=== PATIENT | female | born 1980 | race Caucasian/White ===

== ENCOUNTER 2018-10-13 15:51 | Emergency (ER) | payer MEDICAID, OTHER, SELFPAY ==
[2018-10-13] MEDS ORDERED: CYCLOBENZAPRINE 10 MG TABLET ONE (16:54)
[2018-10-13] MEDS ORDERED: HYDROcodone/APAP 5/325 TABLET ONE (16:55)
[2018-10-13] MEDS ORDERED: CYCLOBENZAPRINE 10 MG TABLET PO ONE (17:00)
[2018-10-13] MEDS ORDERED: HYDROcodone/APAP 5/325 TABLET PO ONE (17:00)
[2018-10-13] MEDS ORDERED: KETOROLAC 30 MG/1 ML ONE (17:46)
[2018-10-13] MEDS ORDERED: PLEASE ENTER WEIGHT MC SCH (18:00)
[2018-10-13] MEDS ORDERED: KETOROLAC 30 MG/1 ML IM ONE (18:00)
[2018-10-13 19:49] VITALS: BP 133/78
== END 2018-10-13 19:54 | disposition home or self-care (01) ==
LOC: ED 17:46
DX: R07.89 Other chest pain (principal); F12.10 Cannabis abuse, uncomplicated; F17.200 Nicotine dependence, unspecified, uncomplicated; Z90.49 Acquired absence of other specified parts of digestive tract
CPT/HCPCS: 71046; 93005; 96372; 99283; J1885

== ENCOUNTER 2018-12-25 20:22 | Observation (INO) | payer MEDICAID ==
[~2018-12-25] VITALS: Ht 165.1 cm; Wt 44.9 kg
[2018-12-25] MEDS ORDERED: FLEXERIL PO (20:46)
[2018-12-25] MEDS ORDERED: ALBU18HF INH (20:47)
[2018-12-25] MEDS ORDERED: LORazepam 2 MG/ML, 1ML IVPush ONE (21:00)
[2018-12-25] MEDS ORDERED: LORazepam 2 MG/ML, 1ML ONE (21:05)
[2018-12-25 21:16] LABS: BASOPHILS # (AUTO) 0.04 x10^3/uL (0-0.1); BASOPHILS % (AUTO) 0 % (0-1); EOSINOPHILS # (AUTO) 0.38 x10^3/uL (0-0.4); EOSINOPHILS % (AUTO) 4 % (1-7); LYMPHOCYTES # (AUTO) 2.52 x10^3/uL (1-3.4); LYMPHOCYTES % (AUTO) 26 % (22-44); MD NO; MEAN CORPUSCULAR HEMOGLOBIN 30.5 pg (27.0-34.8); MEAN CORPUSCULAR HGB CONC 33.6 g/dL (32.4-35.8); MEAN CORPUSCULAR VOLUME 90.8 fL (80-100); MONOCYTES # (AUTO) 0.65 x10^3/uL (0.2-0.8); MONOCYTES % (AUTO) 7 % (2-9); NEUTROPHILS # (AUTO) 6.06 x10^3/uL (1.8-6.8); NEUTROPHILS % (AUTO) 63 % (42-75); PLATELET COUNT 249 x10^3/uL (130-400); RED BLOOD COUNT 5.27 x10^6/uL (3.82-5.3)
[2018-12-25 21:29] LABS: ALANINE AMINOTRANSFERASE 25 U/L (12-78); ALBUMIN 4.8 g/dL (3.4-5.0); ANION GAP 5 mmol/L (5-15); CALCIUM 10.1 mg/dL (8.5-10.1); CHLORIDE 107 mmol/L (98-107)
[2018-12-25] MEDS ORDERED: MORPHINE SULFATE 4 MG/ML, 1ML IVPush PRN (21:30)
[2018-12-25 21:33] LABS: ALKALINE PHOSPHATASE 60 U/L (45-117); BILIRUBIN,TOTAL 0.4 mg/dL (0.2-1.0); CREATININE 0.89 mg/dL (0.55-1.02); TOTAL PROTEIN 8.1 g/dL (6.4-8.2); TROPONIN I < 0.015 ng/mL (0.000-0.045)
[2018-12-25] MEDS ORDERED: ONDANSETRON 2MG/ML, 2ML ONE (22:02)
[2018-12-25] MEDS ORDERED: MORPHINE SULFATE 4 MG/ML, 1ML ONE (22:02)
[2018-12-25] MEDS ORDERED: SODIUM CHLORIDE FLUSH 10ML SYR IVF ONE (22:30)
[2018-12-25] MEDS ORDERED: ONDANSETRON 2MG/ML, 2ML IVPush ONE (22:30)
[2018-12-25] MEDS ORDERED: SODIUM CHLORIDE 0.9% 1,000ML IVBOLUS ONE ×2 (22:30→23:00)
[2018-12-25] MEDS ORDERED: HYDROmorphone 2 MG/ML, 1ML IVPush PRN (23:00)
[2018-12-25] MEDS ORDERED: HYDROmorphone 1 MG/ML, 1ML ONE (23:10)
[2018-12-25 23:33] VITALS: BP 103/73
[2018-12-25] MEDS ORDERED: IBUP-1222 PO (23:40)
[2018-12-25] MEDS ORDERED: ACET325T51 PO (23:40)
[2018-12-25] MEDS ORDERED: MELO15TA24 PO (23:40)
[2018-12-26 00:42] VITALS: BP 108/76
[2018-12-26] MEDS ORDERED: hydrALAzine 20 MG/ML, 1ML IVPush PRN (02:00)
[2018-12-26] MEDS ORDERED: ONDANSETRON 2MG/ML, 2ML IVPush PRN (02:00)
[2018-12-26] MEDS ORDERED: ACETAMINOPHEN 325 MG TABLET PO PRN (02:00)
[2018-12-26] MEDS: HEPARIN 5,000 UNITS/ML, 1ML SQ SCH ×2 (02:22→09:22)
[2018-12-26] MEDS: IBUPROFEN 600 MG TABLET PO PRN ×2 (02:31→09:22)
[2018-12-26 02:55] LABS: TROPONIN I < 0.015 ng/mL (0.000-0.045)
[2018-12-26] MEDS ORDERED: ASPIRIN 325 MG TABLET PO SCH (06:00)
[2018-12-26 07:17] VITALS: BP 105/73
[2018-12-26 07:26] LABS: MICROSCOPIC NOT IND
[2018-12-26 07:28] LABS: CULTURE INDICATED? NO
[2018-12-26 07:42] LABS: AMPHETAMINE SCREEN, URINE Negative (Negative); BARBITURATE SCREEN, URINE Negative (Negative); BENZODIAZEPINE SCREEN, URINE Negative (Negative); CANNABINOID SCREEN, URINE Positive (Negative); COCAINE SCREEN, URINE Negative (Negative); METHADONE SCREEN, URINE Negative (Negative); OPIATE SCREEN, URINE Positive (Negative)
[2018-12-26] MEDS ORDERED: LIDODERM 5% PATCH TD SCH (08:30)
[2018-12-26] MEDS: CYCLOBENZAPRINE 10 MG TABLET PO PRN ×2 (09:23→14:24)
[2018-12-26 09:45] LABS: TROPONIN I < 0.015 ng/mL (0.000-0.045)
[2018-12-26] MEDS ORDERED: ONDA4TAB7 PO (12:15)
== END 2018-12-26 15:50 | disposition home or self-care (01) ==
LOC: ED 20:48 → INTOOBSV 22:46 → EDIP 22:46 → 4WST 23:26 → DCLOUNGE 12-26 15:41
PROVIDERS: ADMIT Family Medicine; ATTEND Family Medicine
DX: R07.89 Other chest pain (principal); I25.10 Atherosclerotic heart disease of native coronary artery without angina pectoris; J45.909 Unspecified asthma, uncomplicated; Z85.05 Personal history of malignant neoplasm of liver; Z85.118 Personal history of other malignant neoplasm of bronchus and lung; Z85.42 Personal history of malignant neoplasm of other parts of uterus; Z87.891 Personal history of nicotine dependence; Z90.710 Acquired absence of both cervix and uterus
CPT/HCPCS: 36415; 71045; 71250; 78582; 80053; 80307; 81003; 83880; 84484; 85025; 93005; 96372; 96374; 96375; 96376; 99284; A9540; A9558; C9898; G0378; J1170; J1644; J2060; J2405; J7030

== ENCOUNTER 2019-02-05 19:17 | Observation (INO) | payer MEDICAID ==
[~2019-02-05] VITALS: Ht 165.1 cm; Wt 59.2 kg
[~2019-02-05 19:17] MED LIST: ACET325T51 PO; ALBU18HF INH; FLEXERIL PO; IBUP-1222 PO; MELO15TA24 PO; ONDA4TAB7 PO
--- NOTE | 2019-02-05 19:31 | NUR ---
PT UNABLE TO HOLD STILL FOR EKG IN TRIAGE.
--- NOTE | 2019-02-05 19:58 | NUR ---
PT REPORTS SUDDEN ONSET STERNAL/ L RIB PAIN WHILE SITTING ON COUCH, "I COULD FEEL IT POP". 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 PT REPORTS THAT THIS FEELS SIMILAR. L RIB/STERNUM TENDER TO PALPATION. +PAIN WITH DEEP BREATHING/MOVEMENT. PT PWD, SPO2 >90% ON RA. RR WNL. BP/SPO2/ECG MONITORING IN PLACE. NSR ON MONITOR. XRAY COMPLETED. EKG COMPLETED UPON ARRIVAL TO ROOM
[2019-02-05 20:18] LABS: BASOPHILS # (AUTO) 0.02 x10^3/uL (0-0.1); BASOPHILS % (AUTO) 0 % (0-1); EOSINOPHILS # (AUTO) 0.25 x10^3/uL (0-0.4); EOSINOPHILS % (AUTO) 5 % (1-7); LYMPHOCYTES # (AUTO) 1.73 x10^3/uL (1-3.4); LYMPHOCYTES % (AUTO) 34 % (22-44); MD NO; MEAN CORPUSCULAR HEMOGLOBIN 31.1 pg (27.0-34.8); MEAN CORPUSCULAR VOLUME 91.7 fL (80-100); MEAN PLATELET VOLUME 8.4 fL (7.4-10.4); MONOCYTES # (AUTO) 0.33 x10^3/uL (0.2-0.8); MONOCYTES % (AUTO) 6 % (2-9); NEUTROPHILS # (AUTO) 2.83 x10^3/uL (1.8-6.8); NEUTROPHILS % (AUTO) 55 % (42-75); PLATELET COUNT 209 x10^3/uL (130-400); RED BLOOD COUNT 4.57 x10^6/uL (3.82-5.3); RED CELL DISTRIBUTION WIDTH 12.7 % (9.6-15.2)
[2019-02-05] MEDS ORDERED: HYDROcodone/APAP 5/325 TABLET ONE (20:18)
[2019-02-05] MEDS ORDERED: KETOROLAC 30 MG/1 ML ONE (20:18)
[2019-02-05 20:29] LABS: ALANINE AMINOTRANSFERASE 23 U/L (12-78); ALBUMIN 4.2 g/dL (3.4-5.0); ANION GAP 5 mmol/L (5-15); CALCIUM 9.2 mg/dL (8.5-10.1); CHLORIDE 110 mmol/L (98-107); CREATININE 0.81 mg/dL (0.55-1.02)
[2019-02-05] MEDS ORDERED: KETOROLAC 30 MG/1 ML IM ONE (20:30)
[2019-02-05] MEDS ORDERED: HYDROcodone/APAP 5/325 TABLET PO ONE (20:30)
[2019-02-05] MEDS ORDERED: PLEASE ENTER HEIGHT AND WEIGHT MC SCH (20:30)
[2019-02-05 20:34] LABS: ALKALINE PHOSPHATASE 57 U/L (45-117); TOTAL PROTEIN 7.2 g/dL (6.4-8.2); TROPONIN I < 0.015 ng/mL (0.000-0.045)
[2019-02-05 20:35] LABS: BILIRUBIN,TOTAL < 0.1 mg/dL (0.2-1.0)
--- NOTE | 2019-02-05 21:04 | NUR ---
RN TO ROOM TO ANSWER CALL LIGHT. PT APPEARS UNCOMFORTABLE, STATES "I DON'T KNOW WHAT HAPPENED. I JUST GOT SWEATY ALL OF A SUDDEN." PT PINK/WARM. VS WNL. EPR AWARE. REPEAT EKG IN PROGRESS.
--- NOTE | 2019-02-05 21:23 | NUR ---
IV ESTABLISHED. ERP AT BEDSIDE TO DISCUSS POC. PT REQUESTING ADMIT.
[2019-02-05] MEDS ORDERED: ALBU8.5H8 INH (21:24)
[2019-02-05] MEDS ORDERED: VICODIN (21:24)
[2019-02-05] MEDS ORDERED: LORazepam 2 MG/ML, 1ML IVPush ONE (21:30)
[2019-02-05] MEDS ORDERED: SODIUM CHLORIDE FLUSH 10ML SYR IVF ONE (21:30)
--- NOTE | 2019-02-05 21:39 | NUR ---
tp: called [facility]. [facility] denied pt transfer at this time.
--- NOTE | 2019-02-05 21:41 | NUR ---
PT RESTING IN BED ON CELL PHONE. NAD NOTED.
[2019-02-05] MEDS ORDERED: LORazepam 2 MG/ML, 1ML ONE (21:47)
--- NOTE | 2019-02-05 22:24 | NUR ---
REPORT TO JANNETH MAKI
[2019-02-05 22:57] VITALS: BP 124/85
[2019-02-05] MEDS ORDERED: SODIUM CHLORIDE 0.9% 1,000 ML IV SCH (23:54)
[2019-02-06] MEDS ORDERED: DOCUSATE 100 MG CAPSULE PO PRN
[2019-02-06] MEDS ORDERED: BISACODYL 10 MG SUPP PR PRN
[2019-02-06] MEDS ORDERED: ONDANSETRON ODT 4 MG PO PRN
[2019-02-06] MEDS ORDERED: POLYETHYLENE GLYCOL 17 GM PACKET PO PRN
[2019-02-06] MEDS ORDERED: hydrALAzine 20 MG/ML, 1ML IVPush PRN
[2019-02-06] MEDS ORDERED: morphine SULFATE 10 MG/ML, 1ML IVPush PRN
[2019-02-06] MEDS ORDERED: NITROGLYCERIN 0.4 MG BOTTLE (25 TABS) SL PRN
[2019-02-06 00:47] LABS: HEMOGLOBIN A1C 5.3 % (4.2-6.3)
[2019-02-06 00:50] LABS: FREE T4 (FREE THYROXINE) 0.86 ng/dL (0.76-1.46); THYROID STIMULATING HORMONE 3.82 mIU/L (0.358-3.740)
[2019-02-06] MEDS: OXYcodone IR 5MG TABLET PO PRN ×5 (00:52→14:59)
[2019-02-06] MEDS: HEPARIN 5,000 UNITS/ML, 1ML SQ SCH ×3 (00:54→16:51)
[2019-02-06 01:54] VITALS: BP 106/71
[2019-02-06 02:55] LABS: TROPONIN I < 0.015 ng/mL (0.000-0.045)
[2019-02-06 05:30] LABS: BASOPHILS # (AUTO) 0.01 x10^3/uL (0-0.1); BASOPHILS % (AUTO) 0 % (0-1); EOSINOPHILS # (AUTO) 0.27 x10^3/uL (0-0.4); EOSINOPHILS % (AUTO) 5 % (1-7); LYMPHOCYTES # (AUTO) 1.96 x10^3/uL (1-3.4); LYMPHOCYTES % (AUTO) 38 % (22-44); MD NO; MEAN CORPUSCULAR HEMOGLOBIN 31.1 pg (27.0-34.8); MEAN CORPUSCULAR HGB CONC 33.6 g/dL (32.4-35.8); MEAN CORPUSCULAR VOLUME 92.6 fL (80-100); MEAN PLATELET VOLUME 8.6 fL (7.4-10.4); MONOCYTES # (AUTO) 0.35 x10^3/uL (0.2-0.8); MONOCYTES % (AUTO) 7 % (2-9); NEUTROPHILS % (AUTO) 50 % (42-75); PLATELET COUNT 172 x10^3/uL (130-400); RED BLOOD COUNT 4.29 x10^6/uL (3.82-5.3); RED CELL DISTRIBUTION WIDTH 12.8 % (9.6-15.2)
[2019-02-06 05:35] LABS: ALBUMIN 3.8 g/dL (3.4-5.0); ANION GAP 4 mmol/L (5-15); CALCIUM 8.5 mg/dL (8.5-10.1); CHLORIDE 112 mmol/L (98-107)
[2019-02-06 05:40] LABS: ALANINE AMINOTRANSFERASE 23 U/L (12-78); ALKALINE PHOSPHATASE 48 U/L (45-117); BILIRUBIN,TOTAL 0.2 mg/dL (0.2-1.0); CHOL/HDL RATIO 2.8; CHOLESTEROL, TOTAL 146 mg/dL (140-239); CREATININE 0.62 mg/dL (0.55-1.02); HDL CHOL % 36 % (28-40); HDL CHOLESTEROL (DIRECT) 52 mg/dL (40-60); LDL CHOLESTEROL,CALCULATED 74 mg/dL (54-169); LDL/HDL RATIO 1.4 (0.5-3.0); TOTAL PROTEIN 6.2 g/dL (6.4-8.2); TRIGLYCERIDES 99 mg/dL (50-200); TROPONIN I < 0.015 ng/mL (0.000-0.045); VLDL CHOLESTEROL 20 mg/dL (0-25)
[2019-02-06] MEDS ORDERED: ASPIRIN 325 MG TABLET EC PO SCH (06:00)
[2019-02-06 08:33] VITALS: BP 121/84
[2019-02-06] MEDS ORDERED: REGADENOSON 0.4 MG/5 ML SYRINGE ONE (08:50)
[2019-02-06] MEDS ORDERED: IBUPROFEN 600 MG TABLET PO PRN (13:30)
[2019-02-06] MEDS ORDERED: ONDANSETRON 4 MG TABLET PO PRN (13:30)
[2019-02-06] MEDS ORDERED: ACETAMINOPHEN 325 MG TABLET PO PRN ×2 (13:30)
[2019-02-06] MEDS ORDERED: ALBUTEROL SULFATE 2.5 MG/3 ML ONE (13:59)
[2019-02-06 14:51] VITALS: BP 142/87
[2019-02-06] MEDS ORDERED: LORazepam 2 MG/ML, 1ML IVPush PRN (15:30)
[2019-02-06] MEDS ORDERED: ALBUTEROL SULFATE 2.5 MG/3 ML NPPB SCH (16:00)
== END 2019-02-06 17:03 | disposition left against medical advice (07) ==
LOC: ED 19:50 → EDIP 21:17 → INTOOBSV 21:17 → 5SO 22:37
PROVIDERS: ADMIT Internal Medicine; ATTEND Internal Medicine
DX: R07.2 Precordial pain (principal); J45.909 Unspecified asthma, uncomplicated; R06.00 Dyspnea, unspecified; Z85.05 Personal history of malignant neoplasm of liver; Z85.42 Personal history of malignant neoplasm of other parts of uterus; Z87.891 Personal history of nicotine dependence; S22.32XD Fracture of one rib, left side, subsequent encounter for fracture with routine healing; X58.XXXD Exposure to other specified factors, subsequent encounter; Y92.89 Other specified places as the place of occurrence of the external cause; Y93.89 Activity, other specified; Y99.8 Other external cause status
CPT/HCPCS: 36415; 71045; 71120; 71250; 78452; 80053; 80061; 83036; 83690; 83735; 84439; 84443; 84484; 84703; 85025; 93005; 93017; 94640; 96372; 96374; 96376; 99284; A9502; C9898; G0378; J1644; J1885; J2060; J2785; J7030; J7613; Q0162